=== PATIENT | male | born 1960 | race Caucasian/White ===

== ENCOUNTER 2017-08-20 18:15 | Emergency (ER) | payer BC ==
[2017-08-20] MEDS: DIPHTH,PERTUSS(ACELL),TET TOX 0.5 ML DISP.SYRIN. VAX IM (19:01)
[2017-08-20] MEDS: LIDOCAINE WITH 8.4% SOD BICARB 3 ML DISP.SYRIN. INJ (19:02)
== END 2017-08-20 19:48 | disposition home or self-care (01) ==
LOC: ER 18:15
DX: S61.211A Laceration without foreign body of left index finger without damage to nail, initial encounter (principal); Z90.49 Acquired absence of other specified parts of digestive tract; Z88.8 Allergy status to other drugs, medicaments and biological substances; W26.8XXA Contact with other sharp object(s), not elsewhere classified, initial encounter; Y93.89 Activity, other specified; Y92.89 Other specified places as the place of occurrence of the external cause; Y99.8 Other external cause status
CPT/HCPCS: 12001; 90471; 90715; 99283-25

== ENCOUNTER 2017-12-23 15:57 | Emergency (ER) | payer BC ==
[2017-12-23 16:32] LABS: ADD MAN DIFF? NO
[2017-12-23 16:43] LABS: BASO # 0.1 x10^3/uL (0.0-0.2); BASO % 1 % (0-3); EOS # 0.1 x10^3/uL (0.0-0.7); EOS % 2 % (0-3); HEMATOCRIT 49.4 % (39.0-53.0); HEMOGLOBIN 17.2 g/dL (13.0-17.5); LYMPH % 25 % (24-48); MEAN CORPUSCULAR HEMOGLOBIN 32 pg (25-35); MEAN CORPUSCULAR HGB CONC 35 g/dL (31-37); MEAN CORPUSCULAR VOLUME 92 fL (79-100); MONO # 0.7 x10^3/uL (0.0-1.1); MONO % 9 % (0-9); NEUT # 5.2 x10^3uL (1.8-7.7); NEUT % 63 % (31-73); PLATELET COUNT 210 x10^3/uL (140-400); RED BLOOD COUNT 5.37 x10^6/uL (4.30-5.70); RED CELL DISTRIBUTION WIDTH 13.6 % (11.5-14.5); WHITE BLOOD COUNT 8.1 x10^3/uL (4.0-11.0)
[2017-12-23 16:50] LABS: ANION GAP 9 (6-14); BLOOD UREA NITROGEN 24 mg/dL (8-26); CALCIUM 8.1 mg/dL (8.5-10.1); CARBON DIOXIDE 25 mmol/L (21-32); CHLORIDE 105 mmol/L (98-107); CREATININE 0.9 mg/dL (0.7-1.3); GLUCOSE 140 mg/dL (70-99); POTASSIUM 3.6 mmol/L (3.5-5.1); SODIUM 139 mmol/L (136-145)
[2017-12-23 16:56] LABS: ALBUMIN 3.8 g/dL (3.4-5.0); ALK PHOS 112 U/L (46-116); DIRECT BILIRUBIN 0.1 mg/dL (0.0-0.2); TOTAL BILIRUBIN 0.6 mg/dL (0.2-1.0); TOTAL PROTEIN 7.2 g/dL (6.4-8.2)
[2017-12-23 17:00] LABS: INR 1.1 (0.8-1.1); PARTIAL THROMBOPLASTIN TIME 29 SEC (24-38); PROTHROMBIN TIME PATIENT 13.2 SEC (11.7-14.0)
[2017-12-23 17:10] LABS: ALT (SGPT) 43 U/L (16-63); AST (SGOT) 40 U/L (15-37)
[2017-12-23] MEDS: PHENYLEPHRINE 0.5% NASAL SPRAY 15ML BOTTLE. NS (17:44)
== END 2017-12-23 19:26 | disposition home or self-care (01) ==
LOC: ER 15:57
DX: R04.0 Epistaxis (principal); J30.9 Allergic rhinitis, unspecified; Z88.8 Allergy status to other drugs, medicaments and biological substances
CPT/HCPCS: 36415; 80048; 80076; 85025; 85610; 85730; 99284

== ENCOUNTER 2017-12-25 09:18 | Emergency (ER) | payer BC ==
[2017-12-25] MEDS: PHENYLEPHRINE 0.5% NASAL SPRAY 15ML BOTTLE. NS (10:14)
== END 2017-12-25 11:07 | disposition home or self-care (01) ==
LOC: ER 11:07
DX: R04.0 Epistaxis (principal); Z88.8 Allergy status to other drugs, medicaments and biological substances
CPT/HCPCS: 99282